=== PATIENT | female | born 1950 | race Caucasian/White ===

== ENCOUNTER 2017-01-03 08:49 | Emergency (ER) | payer OTHER ==
[~2017-01-03] VITALS: Ht 162.6 cm; Wt 80.7 kg
[2017-01-03 10:00] VITALS: BP 157/90
== END 2017-01-03 10:00 | disposition home or self-care (01) ==
LOC: ED 08:49
DX: S83.91XA Sprain of unspecified site of right knee, initial encounter (principal); J45.909 Unspecified asthma, uncomplicated

== ENCOUNTER 2020-04-01 09:50 | Emergency (ER) | payer OTHER ==
[~2020-04-01] VITALS: Ht 157.5 cm; Wt 80.3 kg
[2020-04-01 09:57] VITALS: Ht 157.5 cm; Wt 80.3 kg
[2020-04-01 11:57] VITALS: BP 142/70
== END 2020-04-01 11:57 | disposition home or self-care (01) ==
LOC: ED 09:50
DX: M54.5 Low back pain (principal); J45.909 Unspecified asthma, uncomplicated; Z98.890 Other specified postprocedural states; Z90.49 Acquired absence of other specified parts of digestive tract; Z88.6 Allergy status to analgesic agent
CPT/HCPCS: J3010